=== PATIENT | female | born 1980 | race Caucasian/White ===

== ENCOUNTER 2016-03-29 09:59 | Emergency (ER) | payer SELFPAY ==
[~2016-03-29] VITALS: Ht 170.2 cm; Wt 116.8 kg
[~2016-03-29 09:59] MED LIST: NAPROXEN500 MG PO; PROAIR HFA8.5 GM IH; ROBITUSSIN AC,T10 ML PO
[2016-03-29 11:32] LABS: INFLUENZA A VIRAL ANTIGEN POSITIVE
[2016-03-29 11:33] LABS: INFLUENZA B VIRAL ANTIGEN NEGATIVE
[2016-03-29] MEDS ORDERED: ROBITUSSIN NIG118 ML PO (12:43)
[2016-03-29] MEDS ORDERED: ZOFRAN ODT4 MG PO (12:43)
[2016-03-29] MEDS ORDERED: NAPROSYN500 MG PO (12:43)
[2016-03-29] MEDS ORDERED: TESSALON PERLE100 MG PO (12:43)
[2016-03-29 12:53] VITALS: BP 126/74
== END 2016-03-29 12:54 | disposition home or self-care (01) ==
LOC: EME 09:59
PROVIDERS: Emergency Medicine
DX: J10.1 Influenza due to other identified influenza virus with other respiratory manifestations (principal); F17.200 Nicotine dependence, unspecified, uncomplicated; Z71.6 Tobacco abuse counseling; R51 Headache; R11.0 Nausea; R19.7 Diarrhea, unspecified
CPT/HCPCS: 87502; 99281; 99283; J1885

== ENCOUNTER 2016-07-04 00:43 | Emergency (ER) | payer OTHER ==
[~2016-07-04] VITALS: Ht 157.5 cm; Wt 111.1 kg
[~2016-07-04 00:43] MED LIST changes: +NAPROSYN500 MG PO; +ROBITUSSIN NIG118 ML PO; +TESSALON PERLE100 MG PO; +ZOFRAN ODT4 MG PO
[2016-07-04] MEDS ORDERED: TOBREX5 ML RIGHT EYE (02:05)
[2016-07-04] MEDS ORDERED: ERYTHROMYCIN O3.5 GM RIGHT EYE (02:05)
[2016-07-04] MEDS ORDERED: NORCO 5/3251 TABLET PO (02:05)
[2016-07-04 02:16] VITALS: BP 159/92
== END 2016-07-04 02:17 | disposition home or self-care (01) ==
LOC: EXP 00:43 → EME 00:43 → EXP 02:17
DX: S05.01XA Injury of conjunctiva and corneal abrasion without foreign body, right eye, initial encounter (principal); W22.8XXA Striking against or struck by other objects, initial encounter
CPT/HCPCS: 99281; 99283

== ENCOUNTER 2016-07-26 10:18 | Emergency (ER) | payer OTHER ==
[~2016-07-26] VITALS: Ht 154.9 cm; Wt 111.0 kg
[~2016-07-26 10:18] MED LIST changes: +ERYTHROMYCIN O3.5 GM RIGHT EYE; +NORCO 5/3251 TABLET PO; +TOBREX5 ML RIGHT EYE
[2016-07-26] MEDS ORDERED: INDOCIN50 MG PO (12:09)
[2016-07-26] MEDS ORDERED: PREDNISONE20 MG PO (12:09)
[2016-07-26] MEDS ORDERED: PEN-VEE K,VEET500 MG PO (12:09)
[2016-07-26 12:54] VITALS: BP 163/87
== END 2016-07-26 12:56 | disposition home or self-care (01) ==
LOC: EME 10:18
DX: K04.7 Periapical abscess without sinus (principal); K02.9 Dental caries, unspecified; F17.200 Nicotine dependence, unspecified, uncomplicated
CPT/HCPCS: 99281; 99283

== ENCOUNTER 2016-07-28 01:52 | Emergency (ER) | payer OTHER ==
[~2016-07-28] VITALS: Ht 154.9 cm; Wt 110.9 kg
[~2016-07-28 01:52] MED LIST changes: +INDOCIN50 MG PO; +PEN-VEE K,VEET500 MG PO; +PREDNISONE20 MG PO
[2016-07-28] MEDS ORDERED: NORCO 5/3251 TABLET PO (04:17)
[2016-07-28 05:16] VITALS: BP 116/68
== END 2016-07-28 05:32 | disposition home or self-care (01) ==
LOC: EME 01:52
PROC: 3E0T3BZ Introduction of Anesthetic Agent into Peripheral Nerves and Plexi, Percutaneous Approach (ICD-10-PCS; principal; 2016-07-28)
DX: K08.89 Other specified disorders of teeth and supporting structures (principal); K13.79 Other lesions of oral mucosa
CPT/HCPCS: 99281; 99283